=== PATIENT | female | born 1935 | race Asian ===

== ENCOUNTER 2017-09-09 13:49 | Outpatient (CLI) | payer OTHER ==
[2017-09-09 14:24] LABS: PLATELET COUNT 274 K/uL (152-353)
[2017-09-09 14:52] LABS: POTASSIUM 5.3 mmol/L (3.6-5.2)
== END 2017-09-09 19:41 | disposition home or self-care (01) ==
LOC: LAB 13:49
PROVIDERS: Nurse Practitioner Family
DX: R53.82 Chronic fatigue, unspecified (principal); R53.81 Other malaise; R73.09 Other abnormal glucose; R79.89 Other specified abnormal findings of blood chemistry
CPT/HCPCS: 80053; 80061; 82306; 83036; 84436; 84443; 85027

== ENCOUNTER 2018-12-09 10:29 | Outpatient (CLI) | payer OTHER ==
[2018-12-09 11:43] LABS: POTASSIUM 4.4 mmol/L (3.6-5.2)
[2018-12-09 12:03] LABS: PLATELET COUNT 407 K/uL (152-353)
== END 2018-12-09 22:04 | disposition home or self-care (01) ==
LOC: RAD 10:29
PROVIDERS: Nurse Practitioner Family
DX: R10.31 Right lower quadrant pain (principal)
CPT/HCPCS: 36415; 80053; 82150; 83690; 85027; Q9963

== ENCOUNTER 2019-05-18 08:50 | Outpatient (CLI) | payer OTHER | END 2019-05-18 22:43 | disposition home or self-care (01) | LOC: CT 08:50 | DX: C18.0 Malignant neoplasm of cecum (principal) | CPT/HCPCS: 36415; 82565; 84520; Q9963 ==

== ENCOUNTER 2019-05-24 13:22 | Outpatient (CLI) | payer OTHER | END 2019-05-24 19:22 | disposition home or self-care (01) | LOC: US 13:22 | DX: I26.99 Other pulmonary embolism without acute cor pulmonale (principal); C18.0 Malignant neoplasm of cecum ==